=== PATIENT | male | born 1985 | race Caucasian/White ===

== ENCOUNTER 2023-06-09 20:57 | Emergency (ER) | payer OTHER, SELFPAY ==
[2023-06-09 21:01] VITALS: BP 141/77; PULSE 71; RESP 16; TEMP 36.6; O2SAT 97; BMI 28.9
[2023-06-09 21:08] VITALS: BP 141/77; PULSE 68; RESP 16; TEMP 36.6; O2SAT 96; BMI 27.4
--- NOTE | 2023-06-09 21:20 | PC.NURSE ---
LEFT FLANK PAIN X3-4 DAYS. NO RADIATING. TENDER WITH PRESSURE. DENIES OTHER SX. DENIES INJURY. DENIES HX OF KIDNEY STONE. URINE SAMPLE OBTAINED AND SENT TO LAB.
--- NOTE | 2023-06-09 21:30 | CT_ITS ---
The [address] [address] Patient Name: KING AVENDAÑO MRN: [id number] date: 1985 Sex: M Assigned Patient Location: ER Current Patient Location: Accession/Order Number: [id number] Exam Date: 06/09/2023 22:05 Report Date: 06/09/2023 22:38 At the request of: KRISTIAN VELÁZQUEZ Procedure: CT abdomen pelvis w con EXAM: CT abdomen pelvis w con HISTORY: low abd pain COMPARISON: None. TECHNIQUE: Intravenous contrast-enhanced axial CT of the abdomen and pelvis was performed with coronal and sagittal reformats provided. FINDINGS: Lung bases: Clear. ABDOMEN: Liver: Normal. Gallbladder/biliary: Normal. Pancreas: Normal. Spleen: Normal. Adrenals: Normal. Kidneys, ureters and urinary bladder: Normal. Pelvis: Borderline prostatomegaly. Vasculature: Normal caliber of the abdominal aorta. Major venous structures of the abdomen are patent. Hollow viscera/retroperitoneum: Normal appearance of the gastroesophageal junction. The small bowel is normal caliber. Appendix is normal. No focal colonic wall thickening. No intra-abdominal free fluid or free air. No mesenteric or pelvic lymphadenopathy. Musculoskeletal/soft tissues: Soft tissues within normal limits. No acute or aggressive osseous abnormality. CT/CT abdomen pelvis w con IMPRESSION: No acute intra-abdominal or pelvic abnormality. Electronically authenticated by: NUNO JAMES Date: 06/09/2023 22:38
--- NOTE | 2023-06-09 21:31 | ED_ITS ---
HPI - Abdominal Pain General Chief Complaint: Abdominal Pain Stated Complaint: Flank Pain Left Side Time Seen by Provider: 06/09/23 21:02 Source: patient Mode of arrival: walk-in Limitations: no limitations History of Present Illness HPI narrative: 37-year-old male presents for pain in his left upper quadrant. He is worried about his spleen. He has had it for 4 days and before that happened he was working out with a medicine ball and it hit him in the abdomen. No fever vomiting or dysuria or hematuria. The pain is continuous Related Data Home Medications ?Medication ?Instructions ?Recorded ?Confirmed No Known Home Medications 06/09/23 06/09/23 Allergies Allergy/AdvReac Type Severity Reaction Status Date / Time No Known Drug Allergies Allergy Verified 06/09/23 21:10 Review of Systems ROS Narrative A ten point review of systems is negative except as noted above. Exam Narrative Exam Narrative: Nurses note and vital signs reviewed and patient is not hypoxic. General: The patient appears well and in no apparent distress. Patient is resting comfortably on cart. Skin: Warm, dry, no pallor noted. There is no rash noted. Head: Normocephalic, atraumatic Eye: Normal conjunctiva, no drainage Ears, Nose, Mouth, and Throat: oral mucosa is moist. Nares patent. Cardiovascular: Regular Rate and Rhythm Respiratory: Patient is in no distress, no accessory muscle use, lungs are clear to auscultation, no wheezing, rales or rhonchi Back: non-tender GI: Tender in the left upper quadrant. No masses. No bruise or rash. Musculoskeletal: The patient has no evidence of calf tenderness, no pitting edema, symmetrical pulses noted bilaterally Neurological: A&O, normal speech Psychiatric: Cooperative Constitutional Vital Signs, click to edit/add: Last Vital Signs Temp 97.8 F 06/09/23 21:08 Pulse 68 06/09/23 21:08 Resp 16 06/09/23 21:08 BP 141/77 06/09/23 21:08 Pulse Ox 96 06/09/23 21:08 O2 Del Method Room Air 06/09/23 21:08 Course Vital Signs Vital signs: Vital Signs Temperature 97.8 F 06/09/23 21:01 Pulse Rate 71 06/09/23 21:01 Respiratory Rate 16 06/09/23 21:01 Blood Pressure 141/77 06/09/23 21:01 Pulse Oximetry 97 06/09/23 21:01 Oxygen Delivery Method Room Air 06/09/23 21:01 Temperature 97.8 F 06/09/23 21:08 Pulse Rate 68 06/09/23 21:08 Respiratory Rate 16 06/09/23 21:08 Blood Pressure 141/77 06/09/23 21:08 Pulse Oximetry 96 06/09/23 21:08 Oxygen Delivery Method Room Air 06/09/23 21:08 MDM - Abdominal Pain MDM Narrative Medical decision making narrative: Workup including CAT scan is negative. He was reassured and discharged home. Treatment diagnosis and follow-up were discussed with the patient. Differential Diagnosis Differential diagnosis: Likely abdominal pain, constipation and other (Splenic injury) Lab Data Attestation: I reviewed the patient's lab results. Labs: Lab Results 06/09/23 06/09/23 Range/Units 21:15 21:36 WBC 9.9 (4.0-11.0) 10^3/uL RBC 5.09 (4.70-6.10) 10^6/uL Hgb 15.0 (14.0-18.0) g/dL Hct 42.4 (42.0-54.0) % MCV 83.3 (80.0-94.0) fL MCH 29.5 (25.9-34.0) pg MCHC 35.4 H (29.9-35.2) g/dL RDW 11.8 (11.0-15.0) % Plt Count 232 (150-450) 10^3/uL MPV 9.4 L (9.5-13.5) fL Neut % (Auto) 46.3 (43.0-75.0) % Lymph % (Auto) 45.3 (20.5-60.0) % Woodson % (Auto) 5.2 (1.7-12.0) % Eos % (Auto) 2.0 (0.9-7.0) % Baso % (Auto) 0.7 (0.2-2.0) % Neut # (Auto) 4.6 (1.4-6.5) 10^3/uL Lymph # (Auto) 4.5 H (1.2-3.8) 10^3/uL Woodson # (Auto) 0.5 (0.3-0.8) 10^3/uL Eos # (Auto) 0.2 (0.0-0.7) 10^3/uL Baso # (Auto) 0.1 (0.0-0.1) 10^3/uL Abs Immat Gran (auto) 0.05 H (0.00-0.03) 10^3/uL Imm/Tot Granulo (auto) 0.5 (0.0-0.5) % Sodium 139 (136-145) mmol/L Potassium 4.0 (3.5-5.1) mmol/L Chloride 102 (98-107) mmol/L Carbon Dioxide 29.6 (21.0-32.0) mmol/L Anion Gap 11.4 BUN 17.0 (7.0-18.0) mg/dL Creatinine 1.04 (0.70-1.30) mg/dL Est GFR ( Amer) >60 (>=60) Est GFR (Non-Af Amer) >60 (>=60) BUN/Creatinine Ratio 16.3 Glucose 86 (74-106) mg/dL Calcium 9.0 (8.5-10.1) mg/dL Urine Color Yellow (YELLOW) Urine Clarity Clear (CLEAR) Urine pH 5.5 (5.0-9.0) Ur Specific Freeburn >=1.030 A (1.005-1.025) Urine Protein Negative (NEG/TRACE) mg/dL Urine Glucose (UA) Negative (NEGATIVE) mg/dL Urine Ketones Negative (NEGATIVE) mg/dL Urine Occult Blood Negative (NEGATIVE) Urine Nitrite Negative (NEGATIVE) Urine Bilirubin Negative (NEGATIVE) Urine Urobilinogen 0.2 (0.2-1.0) EU/dL Ur Leukocyte Esterase Negative (NEGATIVE) Urine RBC 0-2 (0-2) #/HPF Urine WBC None seen (NONE SEEN) #/HPF Ur Squamous Epith Cells None seen (NONE/RARE) #/LPF Urine Crystals None seen (None Seen) #/HPF Urine Bacteria None seen (NONE SEEN) #/HPF Urine Casts None seen (NONE SEEN) #/LPF Urine Mucus None seen (NONE SEEN) Ur Culture Indicated? No Imaging Data CT scan - abdomen: Radiologist's impression: ITS Impressions Abdomen/Pelvis CT 06/09/23 21:30 IMPRESSION: No acute intra-abdominal or pelvic abnormality. Electronically authenticated by: NUNO JAMES Date: 06/09/2023 22:38 Discharge Plan Discharge Stand Alone Forms: Portal Instructions Chief Complaint: Abdominal Pain Clinical Impression: Abdominal wall pain Patient Disposition: Home, Self-Care Time of Disposition Decision: 23:01 Condition: Good Mode of Transportation: Private Vehicle Prescriptions / Home Meds: No Action No Known Home Medications Print Language: Nepali Instructions: Blunt Abdominal Injury (ED) Referrals: Physician,Non-Staff, MD [Primary Care Provider] - 1 week
[2023-06-09 21:39] LABS: Bilirubin Urine NEGATIVE (NEGATIVE); Blood Urine NEGATIVE (NEGATIVE); Clarity Urine CLEAR (CLEAR); Color Urine YELLOW (YELLOW); Glucose Urine UA NEGATIVE (NEGATIVE); Ketones Urine NEGATIVE (NEGATIVE); Leukocyte Esterase Urine NEGATIVE (NEGATIVE); Nitrite Urine NEGATIVE (NEGATIVE); Protein Urine NEGATIVE (NEG/TRACE); Specific Gravity Urine >=1.030 (1.005-1.025); Urobilinogen Urine 0.2 EU/dL (0.2-1.0); pH Urine 5.5 (5.0-9.0)
[2023-06-09 21:42] LABS: Basophils Absolute Auto 0.1 10^3/uL (0.0-0.1); Basophils Percent Auto 0.7 % (0.2-2.0); Eosinophils Absolute Auto 0.2 10^3/uL (0.0-0.7); Hematocrit 42.4 % (42.0-54.0); Immature Granulocytes Abs Auto 0.05 10^3/uL (0.00-0.03); Immature Granulocytes Pct Auto 0.5 % (0.0-0.5); Lymphocytes Absolute Auto 4.5 10^3/uL (1.2-3.8); Lymphocytes Percent Auto 45.3 % (20.5-60.0); Mean Corpuscular HGB Conc 35.4 g/dL (29.9-35.2); Mean Corpuscular Hemoglobin 29.5 pg (25.9-34.0); Mean Corpuscular Volume 83.3 fL (80.0-94.0); Mean Platelet Volume 9.4 fL (9.5-13.5); Monocytes Absolute Auto 0.5 10^3/uL (0.3-0.8); Monocytes Percent Auto 5.2 % (1.7-12.0); Neutrophils Absolute Auto 4.6 10^3/uL (1.4-6.5); Neutrophils Percent Auto 46.3 % (43.0-75.0); Platelet Count 232 10^3/uL (150-450); Red Blood Count 5.09 10^6/uL (4.70-6.10); Red Cell Distribution Width 11.8 % (11.0-15.0); White Blood Count 9.9 10^3/uL (4.0-11.0)
[2023-06-09 21:45] LABS: Bacteria Urine NONE SEEN #/HPF (NONE SEEN); Cast Seen? NONE SEEN #/LPF (NONE SEEN); Crystals Seen? None Seen #/HPF (None Seen); Mucus Urine NONE SEEN (NONE SEEN); RBC Urine 0-2 #/HPF (0-2); Squamous Epithelial Cell Urine NONE SEEN #/LPF (NONE/RARE); Urine Culture Indicated NO; WBC Urine NONE SEEN #/HPF (NONE SEEN)
[2023-06-09 21:52] LABS: Anion Gap 11.4; BUN Creatinine Ratio 16.3; Carbon Dioxide 29.6 mmol/L (21.0-32.0); Chloride 102 mmol/L (98-107); Estimated GFR (African America >60 (>=60); Estimated GFR (Non-African Ame >60 (>=60); Glucose 86 mg/dL (74-106); Sodium 139 mmol/L (136-145)
== END 2023-06-09 23:08 | disposition home or self-care (01) ==
PROVIDERS: Emergency Provider Emergency Medicine
DX: R10.9 Unspecified abdominal pain (principal)
CPT/HCPCS: 36415; 74177; 80048; 81001; 85025; 99285; Q9967

== ENCOUNTER 2024-09-23 14:04 | Emergency (ER) | payer SELFPAY ==
--- OUTSIDE RECORDS SUMMARY | 2023-03-03 12:06 | XMS_ITS | Continuity of Care Document ---
Author Organization [facility] Address [address] [place] [address] Phone Care Team Providers Care Hot Oiler Name Role Phone Durga FIGUEROA, Marvin Unavailable Unavailab le Allergies, Adverse Reactions, Alerts Substance Reaction Status Criticality No Known Allergies Active No Inform ation Medications Medication Instructions Dosage Effective Dates (start - stop) Status Comments cephalexin 500 mg capsule take 1 capsule by oral route every 8 hours 500 MG - Active Procedures Procedure Date OFFICE/OUTPATIENT VISIT, EST OFFICE/OUTPATIENT VISIT, EST Nutrit Couns For Control Of Swift Dis Nov Oral Hygiene Instruction Prophylaxis Adult Oral Hygiene Instruction Intraoral-complete Series (bw) Periodic Oral Eval Estab Patient 2021 OFFICE/OUTPATIENT VISIT, EST OFFICE/OUTPATIENT VISIT, EST GLYCOSYLATED HEMOGLOBIN TEST OFFICE/OUTPATIENT VISIT, EST ROUTINE VENIPUNCTURE OFFICE/OUTPATIENT VISIT, EST [employer] Intraoral-periapical 1st Film 8 [id number] Additional May Periodic Oral Eval Estab Patient 2017 Prophylaxis Adult Oral Hygiene Instruction [employer] OFFICE/OUTPATIENT VISIT, EST ROUTINE VENIPUNCTURE Extract; Erupted Th/exposted Rt 016 Prophylaxis Adult [employer] Oral Hygiene Instruction Intraoral-periapical 1st Film 6 Periodic Oral Eval Estab Patient 2015 Resin 4+ W/incis Angle Anterior 014 OFFICE/OUTPATIENT VISIT, EST ROUTINE VENIPUNCTURE Condoms HIV-1 Prophylaxis Adult Oral Hygiene Instruction Intraoral-complete Series (bw) 14 Comp Oral Eval New/estab Patient 2013 PREV VISIT, EST, AGE 18-39 OFFICE/OUTPATIENT VISIT, EST SPECIMEN HANDLING ROUTINE VENIPUNCTURE RPR, RFX On RPR CRYOTHERAPY OF SKIN Advance Directives Directive Yes / No Effective Date File Name No Information Encounters Encounter Description Practice Location Reason(s) For Visit Diagnoses Date Provider Providers Copied on Encounter [facility], [address] [place] [address], [id number] , [place] tel:[phone] [facility] No Information 3 Durga Wong. [address] [place] [address], [id number], [place]. tel:[phone] OFFICE/OUTPA TIENT VISIT, [facility], [address] [place] [address], [id number] , [place] tel:[phone] [facility] c/o sti (chief complaint) Body mass index [BMI]30.0-30.9, adultRash 2 Durga Wong. [address] [place] [address], [id number], [place]. tel:[phone] OFFICE/OUTPA TIENT VISIT, EST [facility], [address] [place] [address], [id number] , [place] tel:[phone] [facility] [place] c/o STI (chief complaint) RashContact with and (suspected) exposure to infections with a predominantly sexual mode of transmission Feb- 2 Durga Wong. [address] [place], [place], [id number], [place]. tel:[phone] [facility], [address] [place] [address], [id number] , [place] tel:[phone] [facility] Adult Prophy (chief complaint) Encounter for screening for dental disorders Sep-0 2 [facility] Asndi. . tel:[phone] [facility], [address] [place] [address], [id number] , [place] tel:[phone] [facility] Encounter for screening for dental disorders Nov-0 2 [facility] Sandi. . tel:[phone] [facility], [address] [place] [address], [id number] , [place] tel:[phone] [facility] PE (chief complaint) Encounter for screening for dental disorders Sep-0 2 [facility] Sandi. . tel:[phone] OFFICE/OUTPA TIENT VISIT, [facility], [address] [place] [address], [id number] , [place] tel:[phone] [facility] Review Labs (chief complaint)h yperlipidem ia (chief complaint) Body mass index [BMI] 28.0-28.9, adultHyperlipid emia, unspecified hyperlipidemia type July- 2 Durga Wong. [address] [place] [address], [id number], [place]. tel:[phone] OFFICE/OUTPA TIENT VISIT, [facility], [address] [place] [address], [id number] , [place] tel:[phone] [facility] Follow-Up (chief complaint)h yperlipidem ia (chief complaint)d epression (chief complaint) Hyperlipidemia, unspecified hyperlipidemia typePTSD (post-traumatic stress disorder)Other bipolar disorderBody mass index [BMI] 28.0-28.9, adult Apr-2 2 Durga Wong. [address] [place], [place], [id number], [place]. tel:[phone] OFFICE/OUTPA TIENT VISIT, [facility], [address] [place] [address], [id number] , [place] tel:[phone] [facility] lab review (chief complaint)l ab work (chief complaint)h yperlipidem ia (chief complaint) Body mass index [BMI]30.0-30.9, adultHyperlipid emia, unspecified hyperlipidemia typeContact with and (suspected) exposure to infections with a predominantly sexual mode of transmission 2 Durga Wong. [address] [place], [place], [id number], [place]. tel:[phone] OFFICE/OUTPA TIENT VISIT, [facility], [address] [place] [address], [id number] , [place] tel:[phone] [facility] STI screening (chief complaint) Contact with and (suspected) exposure to infections with a predominantly sexual mode of transmissionBod y mass index [BMI] 29.0-29.9, adultHyperlipid emia, unspecified hyperlipidemia type 2 Durga Wong. [address] [place], [place], [id number], [place]. tel:[phone] [address] [place] [address], [address] [place] [address], [id number] , [place] tel:[phone] [facility] prophy adult (chief complaint)p rophy adult (chief complaint) Encounter for screening for dental disorders 0 8-201 8 Kokinnadiyan castillon DMD Solochana . [address] [place] [address], [id number], [place]. tel:[phone] OFFICE/OUTPA TIENT VISIT, [facility], [address] [place] [address], [id number] , [place] tel:[phone] [facility] Kenefic: (chief complaint) Encounter for STD screeningEncoun ter for screening for human immunodeficienc y virus [HIV]Encounter for screening for other metabolic disorders 8 Dotty Mccoy. [address] [place], [address], [place]. tel:[phone] [facility], [address] [place], [place], [id number] , [place] tel:[phone] [facility] extraction (chief complaint) Encounter for screening for dental disorder 6 [facility] June. [address] [place], [place], [id number], [place]. tel:[phone] [facility], [address] [place], [place], [id number] , [place] tel:[phone] [facility] prophy (chief complaint) Encounter for screening for dental disorder 6 [facility] June. [address] [place], [place], [id number], [place]. tel:[phone] [facility], [address] [place] [address], [id number] , [place] tel:[phone] [facility] screening (chief complaint) Encounter for screening for HIVPenile rashEncounter for screening for other viral diseases 6 Cheryl Jensen. [address] [place], [place], [id number], [place]. tel:[phone] [place] [address], [address] [place] [address], [id number] , [place] tel:[phone] [facility] Dental examination 4 [facility] June. [address] [place], [place], [id number], [place]. tel:[phone] OFFICE/OUTPA TIENT VISIT, EST [facility], [address] [place], [place], [id number] , [place] tel:[phone] [facility] STI male (chief complaint) Contact with or exposure to venereal diseases 4 Cheryl Jensen. [address] [place], [place], [id number], [place]. tel:[phone] [facility], [address] [place], [place], [id number] , [place] tel: [phone] [facility] Clinic Dental examination 4 [place] [facility] June. [address] [place], [place], [id number], [place]. tel:[phone] [facility], [address] [place] [address], [id number] , [place] tel: [phone] [facility] Dental examination 4 [place] D[facility] June. [address] [place], [place], [id number], [place]. tel:[phone] PREV VISIT, EST, AGE 18-39 [facility], [address] [place] [address], [id number] , [place] tel: [phone] [facility] STI male (chief complaint) Screening examination for venereal diseaseDermatop hytosis of groin and perianal area 0-201 3 Cheryl Jensen. [address] [place], [place], [id number], [place]. tel:[phone] OFFICE/OUTPA TIENT VISIT, EST [facility], [address] [place] [address], [id number] , [place] tel: [phone] [facility] No Information 9200 9 Cheryl Jensen. [address] [place] [address], [id number], [place]. tel:[phone] Family History Family Member Type Diagnosis Age At Onset Mother Problem (finding) depression Father Problem (finding) Alive and well Mother Problem (finding) Alive and well Mother Problem (finding) hypercholesterolemia Father Problem (finding) hypertension Father Problem (finding) alcoholism Father Problem (finding) hypercholesterolemia Brother Problem (finding) depression Mother Problem (finding) hypertension Father Problem (finding) diabetes mellitus type 2 Father Problem (finding) depression Father Problem (finding) Diabetes mellitus Payers Payer name Insurance type Covered green party ID Authoriza tion(s) No Information Social History Type Description Quantity Date Captured Comments Alcohol Use Details Unknown Caffeine Use Details Unknown Tobacco Use Status No Information Smoking Status No Information Sex Male Sexual Orientation Straight or heterosexual Gender Identity Male Chief Complaint And Reason For Visit No Information Reason For Referral Reason For Referral No Information Plan Of Treatment Date Type Action Status Goal Hepatitis C scre ening. Due on due Goal Unhealthy drug u se screening. Due on due Goal Depression scree roge. Due on due Goal Hep A. Due on du e Goal RLP. Due on due Goal PRAPARE ASSESSMENT. Due on due Goal Tdap. Due on due Goal Influenza vaccine. Due on due Goal Hep A. Due on du e Goal Tdap Vaccine. Due on 2022 due Goal Lipid panel. Due on 025 due Goal Depression scree roge. Due on due Goal PRAPARE ASSESSMENT. Due on due Goal Lipid panel. Due on 027 due Goal Influenza vaccine. Due on due Goal Tdap. Due on due Goal RLP. Due on due Goal Dietary manageme nt education, guidance, and counseling completed Goal Tdap. Due on due Goal Depression scree roge. Due on due Goal RLP. Due on due Goal Influenza vaccine. Due on due Goal PRAPARE ASSESSMENT. Due on D due Goal Lipid panel. Due on due Goal Lipid panel. Due on due Goal Tdap. Due on due Goal PRAPARE ASSESSMENT. Due on S due Goal RLP. Due on due Goal Depression scree roge. Due on due Goal Influenza vaccine. Due on Se due Goal RLP. Due on due Goal Depression scree roge. Due on due Goal Influenza vaccine. Due on Se due Goal Tdap. Due on due Goal PRAPARE ASSESSMENT. Due on S due Goal RLP. Due on due Goal Influenza vaccine. Due on due Goal Depression scree roge. Due on due Goal Tdap. Due on due Goal Dietary manageme nt education, guidance, and counseling completed Goal Tdap. Due on due Goal RLP. Due on due Goal Depression scree roge. Due on due Goal Influenza vaccine. Due on Ap due Goal Lifestyle education regardin g diet completed Goal Influenza vaccine. Due on due Goal Tdap. Due on due Goal Depression scree roge. Due on due Goal RLP. Due on due Goal Dietary manageme nt education, guidance, and counseling completed Goal Influenza vaccine. Due on due Goal RLP. Due on due Goal Tdap. Due on due Goal Depression scree roge. Due on due Goal Lifestyle education regardin g diet completed Goal Tdap. Due on due Goal Depression scree roge. Due on due Goal H&P. Due on due Goal Influenza vaccine. Due on due Goal RLP. Due on due Goal RLP. Due on due Goal Depression scree roge. Due on due Goal Influenza vaccine. Due on due Goal Tdap. Due on due Goal H&P. Due on due Goal H&P. Due on due Goal Tdap. Due on due Goal Td vaccine. Due on 16 due Goal Td vaccine. Due on 16 due Goal H&P. Due on due Goal Tdap. Due on due Goal H&P. Due on due Goal Tdap. Due on due Goal Td vaccine. Due on 16 due Goal H&P. Due on due Future Order: Lab Order HSV 1 an d 2-Specific Ab, IgG ([id number]), Ordered on: Ordered Future Order: Lab Order HSV Cult ure and Typing ([id number]), Ordered on: Ordered History Of Present Illness Encounter Date Complaint History Of Prese nt Illness c/o sti Pt here for STI. Edwina, RNHSV positive partner, rash to groin area for 1-2 weeks. Partner with outbreak 1 month ago no intercourse while rash present. Concern for HSV, cephalexin has not been started. Nhan [facility] c/o STI Patient states h e has a rash in genital area. States it feels like a heat rash but he is not sure so wants to get it checked. States it started a few days ago and it started itching before that. Does not use condoms. No burning or difficulties urinating.Pebbles Turpin RNPartner HSV 2+ her first outbreak recently. Patient no prior outbreak previously HSV 2 negative. Recent rash to groin area 5 days ago, concern for HSV 2 partner not on suppression medication. Nhan [facility] Adult Prophy Adult Prophy PE hyperlipidemia Risk factors inc lude depression and poor diet. The patient is adhering to follow-up, diet and exercise for their hyperlipidemia. Hyperlipidemia management includes improved diet and increased exercise. There are no associated symptoms. Additional information: Nhan BILLS. Review Labs Pt here today to review labs. No other issues or concernsTGrodamerico UREÑA Follow-Up Scored 19 on PHQ -9, feels that his life is getting harder because his stress is getting worse and worse.//Gabriel VILLAFANA hyperlipidemia The hyperlipidem ia started in 2020. Risk factors include depression and poor diet. The patient is adhering to medication, follow-up and diet for their hyperlipidemia. Hyperlipidemia management includes improved diet. Associated symptoms include weight loss. Pertinent negatives include chest pain, diaphoresis, dizziness, dyspnea, increased fatigue and transient weakness. Additional information: Nhan BILLS. depression This is an initi al visit. The patient reports functioning as somewhat difficult. The patient presents with anxious/fearful thoughts, depressed mood, difficulty falling asleep, difficulty staying asleep and excessive worry but denies paranoia, poor judgment, racing thoughts or restlessness. The depression is aggravated by conflict or stress, drug use and lack of sleep. Interventions the patient has tried have not provided any relief. The patient denies any sweating. Additional information: Nhan BILLS. lab review Pt here today to discuss lab results from 03/26. No complaints at this time. Viridiana Tomlinson RN lab work Lab work obtaine d successfully in [facility] after 1st attempt. No complications at this time. Viridiana Tomlinson RN hyperlipidemia Risk factors inc lude depression and poor diet. The patient is adhering to medication and follow-up for their hyperlipidemia. The patient is not adhering to diet and exercise for their hyperlipidemia. Pertinent negatives include chest pain, claudication, constant hunger, constipation, diaphoresis, diarrhea, dizziness, dysesthesias, dyspnea, excessive thirst, foot ulcer, frequent infections, heartburn, hematuria, increased fatigue, joint pain, myalgia, nausea and nocturia. Additional information: Nhan BILLS. STI screening Patient denies h aving any symptoms today. Patient's current partners are women. Patient reports does not have an untreated positive gonorrhea or chlamydia test. Patient reports sometimes using condoms. Current sexual activity includes: vaginal. Patient has no previous history of treated sexually transmitted infection(s). Patient reports new partner(s) since last STI tests. Patient has had anonymous partners. Patient reports having 2 partners in the last 12 months. Patient reports exposure to herpes simplex virus. Patient does not use shared needles. Patient does not have sex for money or drugs. Patient reports he has never been incarcerated. Patient has not had exposure to blood/body fluids at work. Partner's sexual partners are men. Unknown if there was a partner with symptoms in the past 60 days. Partner is monogamous. Partner's HIV status is unknown. Unknown if partner uses IV drugs. It is unknown if patient's partner has ever been incarcerated. Additional information: patient tested positive for HSV per energy conservation technician, patient requesting to be tested. Nhan BILLS. Mar-08-2018 prophy adult 5M prophy adult Dotty: His par yesenia was said to have chalmydia about 1 month ago and he just wants to be tested. He has no sxs, no discharge or ulcers or dysuria. He also wants to be checked for Hiv. There is no other medical Hx. There have been no surgeries. extraction continue with tr eatment prophy screening Pt here for sti screening. Reports friction burn on penis, has had it for 2 months. Has had tried burn cream and triple antibiotic ointment with minimal healing. Reports that he hasn't used anything on it for the past week. Declines condoms. Reports last had sex 2wks ago. Girlfriend recently treated for abnormal pap test. Requests HIV screen and Hep C testing. Reports recently found out a past partner is Hep C+. Jim Functional Status Date Functional Assessmen t No Information Instructions Date Instruction Additional Infor italia 1. TEST COMPLETED2. Will contact for POSITIVE TEST RESULTS ONLY.3. Use condoms Related to Rash Giving encouragement to exercise Related to Body mass index [BMI] 30.0-30.9, adult Dietary management e ducation, guidance, and counseling Related to Body mass index [BMI] 30.0-30.9, adult 1. HSV testing pendi ng2. no intercourse until clear3. complete keflex4. Will call with results Related to Rash 1. Continue OMEGA 3 supplementation2. Diet limit intake of meals high in LDL cholesterol and increase intake of HDL containing foods.3. Exercise at least 30 minutes 5 times per week of active exercise4. Avoid smoke and/or quit smoking5. Follow up 12 months. Related to Hyperlipidemia, unspecified hyperlipidemia type Giving encouragement to exercise Related to Body mass index [BMI] 28.0-28.9, adult Dietary management e ducation, guidance, and counseling Related to Body mass index [BMI] 28.0-28.9, adult 1. pending labs- LIP ID PANEL2. Diet limit intake of meals high in LDL cholesterol and increase intake of HDL containing foods.3. Exercise at least 30 minutes 5 times per week of active exercise4. CONTINUE OMEGA 3 SUPPLEMENTATION5. Follow up 1 week Related to Hyperlipidemia, unspecified hyperlipidemia type 1. Follow up with [facility]. [place] [facility] 2. Avoid alcohol and illicit drugs3. Exercise regularly4. practice good sleep hygiene.5. [place] [facility] [place] any suicidal or homicidal ideations Related to PTSD (post-traumatic stress disorder) 1. Follow up with [facility]. [place] [facility] [place] 2. Avoid alcohol and illicit drugs3. Exercise regularly4. practice good sleep hygiene.5. Use [facility] [place] for any suicidal or homicidal ideations Related to Other bipolar disorder Giving encouragement to exercise Related to Body mass index [BMI] 28.0-28.9, adult Lifestyle education regarding di et Related to Body mass index [BMI] 28.0-28.9, adult 1. FU as needed. Related to Cont act with and (suspected) exposure to infections with a predominantly sexual mode of transmission 1. Take omega 3 supp lements2. Diet limit intake of meals high in LDL cholesterol and increase intake of HDL containing foods.3. Exercise at least 30 minutes 5 times per week of active exercise4. Avoid smoke and5. Follow up 3 months. Related to Hyperlipidemia, unspecified hyperlipidemia type Giving encouragement to exercise Related to Body mass index [BMI] 30.0-30.9, adult Dietary management e ducation, guidance, and counseling Related to Body mass index [BMI] 30.0-30.9, adult 1. TEST COMPLETED2. Will contact for POSITIVE TEST RESULTS ONLY.3. Use condoms Related to Contact with and (suspected) exposure to infections with a predominantly sexual mode of transmission Giving encouragement to exercise Related to Body mass index [BMI] 29.0-29.9, adult Lifestyle education regarding di et Related to Body mass index [BMI] 29.0-29.9, adult Avoid sexual activit y while you await your test results. Related to Encounter for screening for other viral diseases Assessments Type Assessment Date No Information Patient Care Teams Name Effective Dates (start - stop) Status Members No Information
--- OUTSIDE RECORDS SUMMARY | 2023-10-04 10:45 | XMS_ITS ---
Author Organization [facility] es Address [address] [place] [address] Care Team Providers Care Breakfast And Room Attendant Name Role Phone Dr. Jono Mars Primary Care Provider [phone] Storm Easton [phone] REASON FOR VISIT FILLING Encounters Encounter Location Date Provider Diagnosis [place] [address] [place] [address] 10/04/2023 Storm Vang Plan Of Treatment No Information Progress Notes * KING AVENDAÑO TDOB:1985 (39 yo M)Acc No.[id number]:10/04/2023 Patient: KING LEDESMA Provider: Roldan Vang DDS :1985 A ge:38 Y S ex:Male Date:10/04/2023 Address:[address] [facility] [address] [id number] Pcp:Dr. Jono Mars Subjective: * Chief Complaints: * 1 . FILLING. * Medical History: Objective: * Vitals: Assessment: Plan: * Treatment: * Images: * Electronic signature of Yaquelin Vang DDS on 09/23/2024 at 02:19 PM EDT Sign off status: Pending * Provider: Roldan Vang DDS Date: 10/04/2023 Generated for Alice nazario/Alfred/eTransmitting on: 09/23/2024 02:19 PM EDT
--- OUTSIDE RECORDS SUMMARY | 2023-12-08 04:30 | XMS_ITS ---
Author Organization [facility] es Address [address] [place] [address] Care Team Providers Care Lease Purchase Truck Driver Name Role Phone Dr. Jono Mars Primary Care Provider [phone] Alison Marcus [phone] REASON FOR VISIT PROPHY Encounters Encounter Location Date Provider Diagnosis [facility] [address] [place] [address] 12/08/2023 Alison Lewis Plan Of Treatment No Information Progress Notes * KING AVENDAÑO TDOB:1985 (39 yo M)Acc No.[id number]:12/08/2023 Patient: KING LEDESMA Provider: Janet Hahn :1985 A ge:38 Y S ex:Male Date:12/08/2023 Address:[address] [facility] [address] [facility] Pcp:Dr. Jono Mars Subjective: * Chief Complaints: * 1 . PROPHY. * Medical History: Objective: * Vitals: Assessment: Plan: * Treatment: * Images: * Electronic signature of Radha Lewis on 09/23/2024 at 02:18 PM EDT Sign off status: Pending * Provider: Janet Hahn Date: 12/08/2023 Generated for Bii ng/Faabdirashidg/eTransmitting on: 0 09/23/2024 02:18 PM EDT
--- OUTSIDE RECORDS SUMMARY | 2024-01-16 05:00 | XMS_ITS ---
Author Organization [facility] es Address [address] [place] [address] Care Team Providers Care Mutton Puncher Name Role Phone Dr. Jono Mars Primary Care Provider Thalia Alonzo REASON FOR VISIT FILLING Encounters Encounter Location Date Provider Diagnosis [facility] [address] [place] [address] 01/16/2024 Thalia Scott Plan Of Treatment No Information Progress Notes * KING AVENDAÑO TDOB:1985 (39 yo M)Acc No.[id number]:01/16/2024 Patient: KING LEDESMA Provider: Dallas SCOTT DDS :1985 A ge:38 Y S ex:Male Date:01/16/2024 Address:[address] [place] [address] W, [address] [phone] Pcp:Dr. Jono Mars Subjective: * Chief Complaints: * 1 . FILLING. * Medical History: Objective: * Vitals: Assessment: Plan: * Treatment: * Images: * Electronic signature of Adela Scott DDS on 09/23/2024 at 02:18 PM EDT Sign off status: Pending * Provider: Dallas SCOTT DDS Date: 1 Generated for Printi ng/Faxing/eTransmitting on: 0 09/23/2024 02:18 PM EDT
[2024-09-23 14:09] VITALS: BP 141/94; PULSE 78; TEMP 36.7; O2SAT 98; BMI 28.9
--- OUTSIDE RECORDS SUMMARY | 2024-09-23 14:19 | XMS_ITS | Clinical Summary ---
Author Organization [facility] Address [address] [place] [address] Care Team Providers Care Trust And Estates Attorney Name Role Phone Unavailable Primary Care Provider Unavailabl e Allergies No known active allergies Medications terbinafine (LamISIL) 250 MG tabletIndication s:Tinea corporis Take 1 tablet, by mouth, once daily x 14 days 14 tablet 4 Active fluocinonide (Lidex) 0.05 % external solutionIndicati ons:Rash and other nonspecific skin eruption Apply to affected areas on the scalp, up to twice a day when flared, 30 day supply 60 mL 1 5 Active Active Problems No known active problems Encounters Date Type Department Care Team Description 08/30/2024 Telephone [facility] [address] [place] [address] Ilana Maguire LPN Results 08/24/2024 Results Follow-Up [facility] [address] [place] [address] Rula Hooper MD 08/23/2024 1:05 PM EDT Office Visit [facility] [address] [place] [address] Rula Hooper MD Encounter for removal of sutures 08/23/2024 Bamboo flowsheet [facility] [address] [place] [address] Rula Hooper MD 08/23/2024 Travel 08/16/2024 11:10 AM EDT Office Visit [facility] [address] [place] [id number] Araceli Villatoro APRN-CNP Rash and other nonspecific skin eruption 08/16/2024 Bamboo flowsheet [facility] [address] [place] [phone] Araceli Villatoro APRN-CNP 08/16/2024 Travel from Last 3 Months Social History Tobacco Use Types Packs/Day Years Used Date Smoking Tobacco: Unknown Tobacco Cessation:Counseling Given: Not Answered Sex and Gender Information Value Date Recorded Sex Assigned at Not on file Legal Sex Male 11:08 PM EDT Gender Identity Not on file Sexual Orientation Not on file Plan of Treatment Upcoming Encounters Date Type Department Care Team (Late st Contact Info) Description 08/20/2025 8:30 AM EDT Office Visit [facility] [address] [place] [address] Araceli Villatoro APRN-CNP [address] [place] [address] Procedures Procedure Name Priority Date/Time Associated Diagnosis Comments SKIN / NAIL BIOPSY Routine 08/16/2024 11 :28 AM EDT Rash and other nonspecific skin eruption DERMATOPATHOLOGY EXAM Routine 08/16/2024 12:00 AM EDT Rash and other nonspecific skin eruption from Last 3 Months Results * Lesion biopsy (08/16/2024 11:28 AM EDT) Narrative Lindsay Junior MA - 08/16/2024 11:28 AM EDT Type of biopsy: punch Punch size: 4 mm Suture size: 4-0 Suture type: nylon Hemostasis achieved with: suture Araceli PACHECO DERM PROCEDURE ORDERAB LES Final Result * Dermatopathology exam (08/16/2024 12:00 AM EDT) SPECIMEN TYPE --- SPECIMEN: RIGHT OCCIPITAL SCALP --- [facility] ICD10 Code L30.8 [facility] PROTOCOL P - PUNCH [facility] Final Diagnosis PSORIASIFORM DERMATITIS, MOST SUGGESTIVE OF PSORIASIS. COMMENT: A PAS stain with adequate control reveals limited keratin to evaluate based upon partial rotation of this section. However, no organisms are identified. This material was reviewed with Dr. Javed. [facility] Gross Text [facility] Microscopic Description Microscopic examination performed. [facility] CPT 88137*1 55650*1 [facility] Skin Topography unknown / Unknown 08/16/2024 11:28 AM EDT Comment:Differential Diagnos is: psoriasis vs. Tinea corporis Check Margins: No us Araceli Villatoro DUPLICATING MACHINE SERVICER-AIR COMPRESSOR ENGINEER LAB PATHOLOGY ORDERABL ES Final Result [facility] from Last 3 Months
--- NOTE | 2024-09-23 14:32 | ED.SKABFB1 ---
HPI - Skin/Abscess/Foreign Bdy General Chief complaint: Skin/Abscess/Foreign Body Stated complaint: RASH Time Seen by Provider: 09/23/24 14:31 Source: patient Mode of arrival: walk-in Limitations: no limitations History of Present Illness HPI narrative: Is a 39-year-old male presents to the ER with concerns of a pruritic skin rash. Patient states he believes he was exposed to poison alda approximately 2 to 3 days ago. Patient states he was camping and hiking [place] when he began itching on his left mid arm and chest. He has been using topical Caladryl with minimal relief. Patient states he will typically get the rash all over once it starts. He has a pertinent history of Bruno Parkinson's White but has taken steroids before without complication including IM injection and oral. He denies any fevers or chills denies any recent illness. He appears in no distress and denies burning any plant material with no chest pain or shortness of breath. MD complaint: Reports rash Context: Reports recent camping; Denies new medication, recent antibiotic, foreign travel, witnessed insect bite or IVDA Associated symptoms: Denies fever, chills or rigors Treatments prior to arrival: Reports OTC topical medication Related Data Previous Rx's ?Medication ?Instructions ?Recorded triamcinolone acetonide 0.1 % 1 applic topical BID PRN itching 09/23/24 topical cream #30 grams Allergies Allergy/AdvReac Type Severity Reaction Status Date / Time No Known Drug Allergies Allergy Verified 06/09/23 21:10 Review of Systems ROS Constitutional Denies: fever, chills or change in weight Eyes Denies: change in vision, blurry vision or blind spots Ears, nose, mouth, and throat Denies: throat pain, neck pain, throat swelling, difficulty swallowing or ear discharge Cardiovascular Denies: chest pain, palpitations, edema or leg pain with exertion Respiratory Denies: shortness of breath, cough or wheezing Gastrointestinal Denies: abdominal pain, nausea or vomiting Genitourinary Denies: painful urination or urinary frequency Musculoskeletal Denies: back pain, neck pain or extremity pain Integumentary/Breast Reports: rash and itching; Denies: redness, skin pain or skin swelling Neurological Denies: headache Psychiatric Denies: anxiety Endocrine Denies: excessive urination PFSH PFSH Social History Little interest or pleasure in doing things: not at all Feeling down, depressed, or hopeless: not at all Exam Narrative Exam Narrative: Vital Signs and nurse's notes are reviewed. The patient is not hypoxic. General: Alert, no acute distress, patient resting comfortably Skin: warm, intact, no pallor noted. The patient has evidence wispy linear erythematous rash slightly raised with tiny vesicles. Nonpainful. Localized to the left anterior chest, left lower abdomen and left mid humerus. Tabor topical Caladryl lotion overlying. The patient has no evidence of petechiae, purpura. The patient has no sloughing of the skin. The patient does have blanching noted. The patient has no involvement of the palms, soles, or oral mucosa. The patient has no significant want associated. Head: Normocephalic, atraumatic Eye: Normal conjunctiva, No exudates Ears, nose, throat: moist mucous membranes, there is no involvement of the oral mucosa, there is no lip or tongue swelling. The patient has airway patent. The patient has no tonsillar hypertrophy or swelling to the posterior oropharynx. No evidence of Vesicles. Neck: The patient has no masses, warmth, or erythema. The patient has no meningeal signs. The patient has no nuchal rigidity noted. Cardiovascular: Regular Rate and Rhythm Respiratory: No acute distress, tachypnea, mild rhonchi and wheezing noted in bilateral lung paiz. No round noted. No retractions or stridor. Abdomen: Normal bowel sounds, soft, nontender, no rebound, guarding or rigidity noted. No masses detected. Musculoskeletal: Normal range of motion, no calf tenderness noted bilaterally, no edema noted. Negative Gigi's sign bilaterally. no evidence of cyanosis or mottling noted to the extremities. Pulses intact. Neurological: alert and oriented x4, normal speech, normal motor, normal sensory Psychiatric: Cooperative Constitutional Vital Signs, click to edit/add: Last Vital Signs Temp 98.1 F 09/23/24 14:09 Pulse 78 09/23/24 14:09 Resp 18 09/23/24 14:09 BP 141/94 H 09/23/24 14:09 Pulse Ox 98 09/23/24 14:09 O2 Del Method Room Air 09/23/24 14:09 Course Vital Signs Vital signs: Vital Signs Temperature 98.1 F 09/23/24 14:09 Pulse Rate 78 09/23/24 14:09 Respiratory Rate 18 09/23/24 14:09 Blood Pressure 141/94 H 09/23/24 14:09 Pulse Oximetry 98 09/23/24 14:09 Oxygen Delivery Method Room Air 09/23/24 14:09 Temperature 98.1 F 09/23/24 14:09 Pulse Rate 78 09/23/24 14:09 Respiratory Rate 18 09/23/24 14:09 Blood Pressure 141/94 H 09/23/24 14:09 Pulse Oximetry 98 09/23/24 14:09 Oxygen Delivery Method Room Air 09/23/24 14:09 MDM - Skin/Abscess/Foreign Bdy MDM Narrative Medical decision making narrative: Discussed patient's presentation, educated on poison alda and the oils he is advised to wash his linens in the cam[place] so that he does not reexposed himself after sleeping all weekend. Rash consistent with that of likely poison alda. Pruritic. We discussed topical and IM steroid for treatment along with ijny-pmk-baohrfe medication such as Claritin for itching and Benadryl at nighttime. Patient agreeable to IM injection we discussed his history of Bruno Parkinson's White and he has tolerated this in the past without incident. He will be given a prescription for topical steroid to spot treat as needed. Patient thankful had no further concerns or questions and has no other complaints at this time. Patient was given 40 mg IM Kenalog here. The patient is to followup with primary care physician in next 2-5days or to return to the emergency department should any of the signs or symptoms worsen or new symptoms develop. Patient had questions answered. The patient agrees with the following Diagnosis and Treatment plan and the patient will be discharged home. Discharge Plan Discharge Chief Complaint: Skin/Abscess/Foreign Body Clinical Impression: Dermatitis due to plants, including poison alda, sumac, and oak, Itchy skin Patient Disposition: Home, Self-Care Time of Disposition Decision: 14:37 Condition: Good Prescriptions / Home Meds: New triamcinolone acetonide 0.1 % cream 1 applic topical BID PRN (Reason: itching) Qty: 30 0RF Rx Instructions: do not apply to face Print Language: Kinyarwanda Instructions: Poison Alda (ED) Additional Instructions: Your doctor in 3-5 days/ May use day time allergy medication such at Claritin, and Benadryl at night for sleeping. Referrals: Physician,Non-Staff, MD [Primary Care Provider] - 1 week
[2024-09-23] MEDS: TRIAMCINOLONE ACETONIDE 40 MG/ML VIAL IM (14:49)
== END 2024-09-23 14:59 | disposition home or self-care (01) ==
PROVIDERS: Emergency Provider Emergency Medicine
DX: L23.7 Allergic contact dermatitis due to plants, except food (principal); I45.6 Pre-excitation syndrome
CPT/HCPCS: 96372; 99284; J3301

== ENCOUNTER 2024-10-08 19:05 | Emergency (ER) | payer SELFPAY ==
[2024-10-08 19:21] VITALS: BP 152/101; PULSE 82; TEMP 36.5; O2SAT 97; BMI 28.9
--- NOTE | 2024-10-08 19:33 | XR_ITS ---
The [address] [address] Patient Name: KING AVENDAÑO MRN: [id number] date: 1985 Sex: M Assigned Patient Location: ER Current Patient Location: ER Accession/Order Number: [id number] Exam Date: 10/08/2024 20:05 Report Date: 10/08/2024 20:06 At the request of: LV LOERA Procedure: XR chest 2V Plain film chest 2 view HISTORY: Cough and congestion COMPARISON: None FINDINGS: SUPPORT DEVICES: None POSTSURGICAL CHANGES: None HEART: Within normal limits PULMONARY SANKET: Within normal limits MEDIASTINUM: Unremarkable LUNGS AND PLEURA: No acute lung process, pleural effusion or pneumothorax identified. BONY STRUCTURES: Intact ADDITIONAL FINDINGS None XR/XR chest 2V IMPRESSION: No acute process. Impression dictated by: Naveen Wild M.D. 10/08/2024 8:06 PM Dictation Location: [place] [address] Electronically authenticated by: [id number] Y Date: 10/08/2024 20:06
--- NOTE | 2024-10-08 19:38 | PC.NURSE ---
pt ambulatory to XR with Graduation Coach at this time.
[2024-10-08] MEDS: IPRATROPIUM/ALBUTEROL SULFATE 3 ML AMPUL.NEB IH (19:42)
[2024-10-08 19:45] VITALS: PULSE 79; O2SAT 97
[2024-10-08] MEDS: DEXAMETHASONE SOD PHOS 10 MG/ML VIAL PO (19:55)
[2024-10-08] MEDS: FAMOTIDINE 20 MG TABLET PO (19:55)
[2024-10-08] MEDS: CETIRIZINE HCL 10 MG TABLET PO (19:55)
--- NOTE | 2024-10-08 20:23 | ED_ITS ---
HPI - URI/Sore Throat General Chief Complaint: Upper Respiratory Infection Stated Complaint: Upper Respiratory Infection RASH Time Seen by Provider: 10/08/24 19:29 Source: patient Limitations: no limitations History of Present Illness HPI Narrative: 39-year-old male presents with chief complaint of cough and cold-like symptoms. He states he then also developed a rash. He was recently treated for contact dermatitis and finished a course of steroids. He states the rash developed on his knees and upper extremities yesterday. Denies any known contact with poison peter again. He states he also has an upper respiratory infection with cough congestion. He does smoke marijuana daily. He has scant respiratory wheezes noted initially. He is otherwise healthy. Vital signs blood pressure 140s over 70s. Related Data Previous Rx's �Medication �Instructions �Recorded triamcinolone acetonide 0.1 % 1 applic topical BID PRN itching 09/23/24 topical cream #30 grams albuterol sulfate 90 mcg/actuation 2 inh inhalation Q8 H PRN shortness 10/08/24 aerosol inhaler of breath or wheezing #8.5 g rozina azithromycin 250 mg tablet See Rx Instructions PO .COM PLEX #6 10/08/24 (Zithromax Z-Milton) tabs Allergies Allergy/AdvReac Type Severity Reaction Status Date / Time No Known Drug Allergies Allergy Verified 10/08/24 19:24 Review of Systems ROS Status of ROS 10 or more systems reviewed and unremark able except as noted in history and below PFSH PFSH Social History Little interest or pleasure in doing things: not at all Feeling down, depressed, or hopeless: not at all Exam Narrative Exam Narrative: All Systems are negative except as noted/marked.All systems reviewed and otherwise negative Nurses note and vital signs reviewed and patient is not hypoxic. General: The patient appears well and in no apparent distress. Patient is resting comfortably on cart. Skin: Warm, dry, no pallor noted. Hive-like rash noted to the upper extremity back and lower extremity. mucous membrane spared Head: Normocephalic, atraumatic Eye: Normal conjunctiva, no drainage, EOMI. PERRL Ears, Nose, Mouth, and Throat: oral mucosa is moist. Nares patent. Mouth without vesicles. Ear canals patent. Tm's without Erythema Cardiovascular: Regular Rate and Rhythm Respiratory: Patient is in no distress, scattered exp wheezing, no acute distress, no accessory muscle usage Back: non-tender, no CVA tenderness bilaterally to percussion. GI: Normal bowel sounds, no tenderness to palpation, no masses appreciated. No rebound, guarding, or rigidity noted. Musculoskeletal: The patient has no evidence of calf tenderness, no pitting edema, symmetrical pulses noted bilaterally Neurological: A&O x4, normal speech Psychiatric: Cooperative Constitutional Vital Signs, click to edit/add: Last Vital Signs Temp 97.7 F 10/08/24 19:21 Pulse 79 10/08/24 19:45 Resp 16 10/08/24 19:45 BP 152/101 H 10/08/24 19:21 Pulse Ox 97 10/08/24 19:45 O2 Del Method Room Air 10/08/24 19:45 Course Vital Signs Vital signs: Vital Signs Temperature 97.7 F 10/08/24 19:21 Pulse Rate 82 10/08/24 19:21 Respiratory Rate 16 10/08/24 19:21 Blood Pressure 152/101 H 10/08/24 19:21 Pulse Oximetry 97 10/08/24 19:21 Oxygen Delivery Method Room Air 10/08/24 19:21 Temperature 97.7 F 10/08/24 19:21 Pulse Rate 79 10/08/24 19:45 Respiratory Rate 16 10/08/24 19:45 Blood Pressure 152/101 H 10/08/24 19:21 Pulse Oximetry 97 10/08/24 19:45 Oxygen Delivery Method Room Air 10/08/24 19:45 MDM - URI/Sore Throat MDM Narrative Medical decision making narrative: 39-year-old male presents with chief complaint of cough and cold-like symptoms. He states he then also developed a rash. He was recently treated for contact dermatitis and finished a course of steroids. He states the rash developed on his knees and upper extremities yesterday. Denies any known contact with poison peter again. He states he also has an upper respiratory infection with cough congestion. He does smoke marijuana daily. He has scant respiratory wheezes noted initially. He is otherwise healthy. Vital signs blood pressure 140s over 70s. Patient presented with chief complaint of rash cough and cough cold-like symptoms. Chest x-ray was negative by radiology patient did have rapid strep obtained as well which is negative. Patient appears to have a hive-like rash medicated with Decadron Pepcid and Zyrtec symptoms did improve. Patient denies any new medications or soaps. Really rash may be due to a viral exanthem. He is otherwise healthy. He will follow-up primary care physician. Differential Diagnosis Differential diagnosis: Likely upper respiratory infection and other Medical Records Attestation: I reviewed the patient's medical records. Lab Data Attestation: I reviewed the patient's lab results. Labs: Lab Results 10/08/24 Range/Units 19:50 Streptococcus Screen Negative Imaging Data Chest x-ray: Radiologist's impression: ITS Impressions Chest X-Ray 10/08/24 19:33 IMPRESSION: No acute process. Impression dictated by: Naveen Wild M.D. 10/08/2024 8:06 PM Dictation Location[facility] Electronically authenticated by: [id number] Y Date: 10/08/2024 20:06 Discharge Plan Discharge Chief Complaint: Upper Respiratory Infection Clinical Impression: Upper respiratory infection Patient Disposition: Home, Self-Care Time of Disposition Decision: 20:50 Condition: Good Prescriptions / Home Meds: New azithromycin [Zithromax Z-Milton] 250 mg tablet See Rx Instructions .ROUTE .COMPLEX Qty: 6 0RF Rx Instructions: For 250 mg dose pack: take 500 mg today (day 1), then 250 mg for 4 days (days 2-5) albuterol sulfate 90 mcg/actuation HFA aerosol inhaler 2 inh inhalation Q8H PRN (Reason: shortness of breath or wheezing) Qty: 8.5 0RF No Action triamcinolone acetonide 0.1 % cream 1 applic topical BID PRN (Reason: itching) Qty: 30 0RF Rx Instructions: do not apply to face Print Language: Syriac Instructions: Upper Respiratory Infection (ED) Referrals: Physician,Non-Staff, MD [Primary Care Provider] - 1 week Discharge Date/Time: 10/08/24 20:39
== END 2024-10-08 20:39 | disposition home or self-care (01) ==
PROVIDERS: Physician Assistant; Emergency Provider Internal Medicine
DX: J06.9 Acute upper respiratory infection, unspecified (principal); R21 Rash and other nonspecific skin eruption
CPT/HCPCS: 71046; 87070; 87880; 94640; 99285; J1100

== ENCOUNTER 2024-10-21 15:39 | Emergency (ER) | payer SELFPAY ==
--- OUTSIDE RECORDS SUMMARY | 2023-03-03 12:06 | XMS_ITS | Continuity of Care Document ---
Author Organization [facility] [place] Address [address] [place] [address] Phone Care Team Providers Care Yarn Mercerizer Operator Helper Name Role Phone Durga FIGUEROA, Marvin Unavailable [...] VISIT, EST [employer] [facility] [place] Dis Nov Oral Hygiene Instruction Prophylaxis Adult Oral Hygiene Instruction Intraoral-complete Series (bw) Periodic Oral Eval Estab Patient 2021 OFFICE/OUTPATIENT VISIT, EST OFFICE/OUTPATIENT VISIT, EST GLYCOSYLATED HEMOGLOBIN TEST OFFICE/OUTPATIENT VISIT, EST ROUTINE VENIPUNCTURE OFFICE/OUTPATIENT VISIT, EST [employer] Films Intraoral-periapical 1st Film 8 [id number]-[id number] Additional May Periodic Oral Eval Estab Patient [...] Diagnoses Date Provider Providers Copied on Encounter [facility] [place], [address] [place] [address], [id number] , [place] tel:[phone] [facility] [place] No Information 3 Durga Wong. [address] [place] [address], [id number], [place]. tel:[phone] OFFICE/OUTPA TIENT VISIT, [facility], [address] [place] [address], [id number] , [place] tel:[phone] [facility] c/o sti (chief complaint) Body mass index [BMI]30.0-30.9, adultRash 2 Durga Wong. [address] [place] [address], [id number], [place]. tel:[phone] OFFICE/OUTPA TIENT VISIT, EST [facility] [place], [address] [place] [address], [id number] , [place] tel:[phone] [facility] c/o STI (chief complaint) RashContact with and (suspected) exposure to infections with a predominantly sexual mode of transmission Feb- 2 Durga Wong. [address] [place], [place], [id number], [place]. tel:[phone] [facility] [place], [address] [place] [address], [id number] , [place] tel:[phone] [facility] Adult Prophy (chief complaint) Encounter for screening for dental disorders Sep-0 2 [facility] Sandi. . tel:[phone] [facility] [place], [address] [place] [address], [id number] , [place] tel:[phone] [facility] Clinic Encounter for screening for dental disorders Nov-0 2 [facility] Sandi. . tel:[phone] [facility] [place], [address] [place] [address], [id number] , [place] tel:[phone] [facility] PE (chief complaint) Encounter for screening for dental disorders Sep-0 2 [facility] Sandi. . tel:[phone] OFFICE/OUTPA TIENT VISIT, [facility], [address] [place] [address], [id number] , [place] tel:[phone] [facility] Review Labs (chief complaint)h yperlipidem ia (chief complaint) Body mass index [BMI] 28.0-28.9, adultHyperlipid emia, unspecified hyperlipidemia type July- 2 Durga Wong. [address] [place] [address], [id number], [place]. tel:[phone] OFFICE/OUTPA TIENT VISIT, [facility], [address] [place] [address], [id number] , [place] tel:[phone] [facility] Follow-Up (chief complaint)h yperlipidem ia (chief complaint)d epression (chief complaint) Hyperlipidemia, unspecified hyperlipidemia typePTSD (post-traumatic stress disorder)Other bipolar disorderBody mass index [BMI] 28.0-28.9, adult Apr-2 2 Durga Wong. [address], [place], [id number], [place]. tel:[phone] OFFICE/OUTPA TIENT VISIT, [facility], [address] [place] [address], [id number] , [place] tel:[phone] [facility] lab review (chief complaint)l ab work (chief complaint)h yperlipidem ia (chief complaint) Body mass index [BMI]30.0-30.9, adultHyperlipid emia, unspecified hyperlipidemia typeContact with and (suspected) exposure to infections with a predominantly sexual mode of transmission 2 Durga Wong. [address], [place], [id number], [place]. tel:[phone] OFFICE/OUTPA TIENT VISIT, [facility], [address] [place] [address], [id number] , [place] tel:[phone] [facility] STI screening (chief complaint) Contact with and (suspected) exposure to infections with a predominantly sexual mode of transmissionBod y mass index [BMI] 29.0-29.9, adultHyperlipid emia, unspecified hyperlipidemia type 2 Durga Wong. [address] [place], [place], [id number], [place]. tel:[phone] [address] [place] [address], [address] [place] [address], [id number] , [place] tel:[phone] [facility] prophy adult (chief complaint)p rophy adult (chief complaint) Encounter for screening for dental disorders 0 8-201 8 Kokinnadiyan castillon DMD Solochana . [address] [place] [address], [id number], [place]. tel:[phone] OFFICE/OUTPA TIENT VISIT, [facility], [address] [place] [address], [id number] , [place] tel:[phone] [facility] [place] Dotty: (chief complaint) Encounter for STD screeningEncoun ter for screening for human immunodeficienc y virus [HIV]Encounter for screening for other metabolic disorders 8 Dotty Mccoy. [address] [place], [address], [place]. tel:[phone] [facility] [place], [address], [place], [id number] , [place] tel:[phone] [facility] extraction (chief complaint) Encounter for screening for dental disorder 6 [facility] June. [address], [place], [id number], [place]. tel:[phone] [facility] [place], [address], [place], [id number] , [place] tel:[phone] [facility] prophy (chief complaint) Encounter for screening for dental disorder 6 [facility] June. [address] [place], [place], [id number], [place]. tel:[phone] [facility] [place], [address] [place] [address], [id number] , [place] tel:[phone] [facility] [place] screening (chief complaint) Encounter for screening for HIVPenile rashEncounter for screening for other viral diseases 6 Cheryl Jensen. [address] [place], [place], [id number], [place]. tel:[phone] [address] [place] [address], [address] [place] [address], [id number] , [place] tel:[phone] Dental Clinic Dental examination 4 [facility] June. [address] [place], [place], [id number], [place]. tel:[phone] OFFICE/OUTPA TIENT VISIT, EST [facility] [place], [address], [place], [id number] , [place] tel:[phone] [facility] [place] STI male (chief complaint) Contact with or exposure to venereal diseases 4 Cheryl Jensen. [address] [place], [place], [id number], [place]. tel:[phone] [facility] [place], [address], [place], [id number] , [place] tel: [phone] Dental Clinic Dental examination 4 Marlin DMD June. [address] [place], [place], [id number], [place]. tel:[phone] [facility] [place], [address] [place] [address], [id number] , [place] tel: [phone] Dental Clinic Dental examination 4 Marlin DMD June. [address] [place], [place], [id number], [place]. tel:[phone] PREV VISIT, EST, AGE 18-39 [facility] [place], [address] [place] [address], [id number] , [place] tel: [phone] [facility] [place] STI male (chief complaint) Screening examination for venereal diseaseDermatop hytosis of groin and perianal area 0-201 3 Cheryl Jensen. [address] [place], [place], [id number], [place]. tel:[phone] OFFICE/OUTPA TIENT VISIT, EST [facility] [place], [address] [place] [address], [id number] , [place] tel: [phone] [facility] [place] No Information 9200 9 Cheryl Jensen. [address] [place] [address], [id number], [place]. tel:[phone] Family History Family Member Type Diagnosis Age [...] Of Treatment Date Type Action Status Goal Tdap. Due on due Goal PRAPARE ASSESSMENT. Due on due Goal Influenza vaccine. Due on due Goal Hep A. Due on du e Goal Tdap Vaccine. Due on 2022 due Goal Lipid panel. Due on due Goal Hepatitis C scre ening. Due on due Goal Unhealthy drug u se screening. Due on due Goal Depression scree roge. Due on due Goal Hep A. Due on du e Goal RLP. Due on due Goal RLP. Due on due Goal Depression scree roge. Due on due Goal Tdap. Due on due Goal Lipid panel. Due on due Goal PRAPARE ASSESSMENT. Due on due Goal Influenza vaccine. Due on due Goal Dietary manageme nt education, guidance, and counseling completed Goal Lipid panel. Due on due Goal Depression scree roge. Due on due Goal PRAPARE ASSESSMENT. Due on due Goal Influenza vaccine. Due on due Goal Tdap. Due on due Goal RLP. Due on due Goal Lipid panel. Due on 027 due Goal PRAPARE ASSESSMENT. Due on S due Goal Influenza vaccine. Due on Se due Goal RLP. Due on due Goal Depression scree roge. Due on due Goal Tdap. Due on due Goal RLP. Due on due Goal Depression scree roge. Due on due Goal Influenza vaccine. Due on due Goal Tdap. Due on due Goal PRAPARE ASSESSMENT. Due on due Goal RLP. Due on due Goal Depression scree roge. Due on due Goal Influenza vaccine. Due on Ma due Goal Tdap. Due on due Goal Dietary manageme nt education, guidance, and counseling completed Goal Influenza vaccine. Due on Ap due Goal Depression scree roge. Due on due Goal Tdap. Due on due Goal RLP. Due on due Goal Lifestyle education regardin g diet completed Goal Influenza vaccine. Due on due Goal Tdap. Due on due Goal RLP. Due on due Goal Depression scree roge. Due on due Goal Dietary manageme nt education, guidance, and counseling completed Goal Tdap. Due on due Goal RLP. Due on due Goal Influenza vaccine. Due on due Goal Depression scree roge. Due on due Goal Lifestyle education regardin g diet completed Goal RLP. Due on due Goal Depression scree roge. Due on due Goal H&P. Due on due Goal Tdap. Due on due Goal Influenza vaccine. Due on due Goal Influenza vaccine. Due on due Goal Tdap. Due on due Goal Depression scree roge. Due on due Goal RLP. Due on due Goal H&P. Due on due Goal Tdap. Due on due Goal H&P. Due on due Goal Td vaccine. Due on 16 due Goal Tdap. Due on due Goal H&P. Due on due Goal Td vaccine. Due on 16 due Goal H&P. Due on due Goal Tdap. Due on due Goal Td vaccine. Due on 16 due Goal H&P. Due on due Future Order: Lab Order HSV 1 an d 2-Specific Ab, IgG ([id number]), Ordered on: Ordered Future Order: Lab Order HSV Cult ure and Typing ([id number]), Ordered on: Ordered History Of Present Illness Encounter Date Complaint History Of Prese nt Illness c/o sti Pt here for STI. Edwina, RNHSV positive partner, rash to groin area for 1-2 weeks. Partner with outbreak 1 month ago no intercourse while rash present. Concern for HSV, cephalexin has not been started. Nhan [facility] c/o STI Patient states h e [...] 2 partner not on suppression medication. Nhan [facility] Adult Prophy Adult Prophy PE hyperlipidemia [...] information: patient tested positive for HSV per program strategist, patient requesting to be tested. Nhan BILLS. [...] unspecified hyperlipidemia type 1. Follow up with [facility] psychiatry provider. Contact [facility] today to schedule 2. Avoid alcohol and illicit drugs3. Exercise regularly4. practice good sleep hygiene.5. Use [facility] Hotline for any suicidal or homicidal ideations Related to PTSD (post-traumatic stress disorder) 1. Follow up with [facility] psychiatry provider. Contact [facility] today to schedule 2. Avoid alcohol and illicit drugs3. Exercise regularly4. practice good sleep hygiene.5. Use [facility] Hotline for any suicidal or homicidal ideations [...]
--- OUTSIDE RECORDS SUMMARY | 2023-10-04 10:45 | XMS_ITS ---
Author Organization [facility] es Address [address] [place] [address] Care Team Providers Care Executive Director Contract Shop Name Role Phone Dr. Jono Mars Primary Care Provider [phone] Storm Easton [phone] REASON FOR VISIT FILLING Encounters Encounter Location Date Provider Diagnosis [place] [address] [place] [address] 10/04/2023 Storm Vang Plan Of Treatment No Information Progress Notes * KING AVENDAÑO TDOB:1985 (39 yo M)Acc No.[id number]:10/04/2023 Patient: KING LEDESMA Provider: Roldan Vang DDS :1985 A ge:38 Y S ex:Male Date:10/04/2023 Address:[address] [place] [address] [address] [id number] Pcp:Dr. Jono Mars Subjective: * Chief Complaints: * 1 . FILLING. * Medical History: Objective: * Vitals: Assessment: Plan: * Treatment: * Images: * Electronic signature of Yaquelin Vang DDS on 10/21/2024 at 03:51 PM EDT Sign off status: Pending * Provider: Roldan Vang DDS Date: 10/04/2023 Generated for Alice nazario/Faabdirashidg/eTransmitting on: 10/21/2024 03:51 PM EDT
--- OUTSIDE RECORDS SUMMARY | 2023-12-08 04:30 | XMS_ITS ---
Author Organization [facility] es Address [address] [place] [address] Care Team Providers Care Ethnographer Name Role Phone Dr. Jono Mars Primary Care Provider [phone] Alison Marcus [phone] REASON FOR VISIT PROPHY Encounters Encounter Location Date Provider Diagnosis [facility] [address] [place] [address] 12/08/2023 Alison Lewis Plan Of Treatment No Information Progress Notes * KING AVENDAÑO TDOB:1985 (39 yo M)Acc No.[id number]:12/08/2023 Patient: KING LEDESMA Provider: Janet Hahn :1985 A ge:38 Y S ex:Male Date:12/08/2023 Address:[address] [facility] [address] [id number] Pcp:Dr. Jono Mars Subjective: * Chief Complaints: * 1 . PROPHY. * Medical History: Objective: * Vitals: Assessment: Plan: * Treatment: * Images: * Electronic signature of Radha Lewis on 10/21/2024 at 03:51 PM EDT Sign off status: Pending * Provider: Janet Hahn Date: 12/08/2023 Generated for Bii ng/Faxing/eTransmitting on: 0 10/21/2024 03:51 PM EDT
--- OUTSIDE RECORDS SUMMARY | 2024-01-16 05:00 | XMS_ITS ---
Author Organization [facility] es Address [address] [place] [address] Care Team Providers Care Wood Repatcher Name Role Phone Dr. Jono Mars Primary Care Provider Thalia Alonzo [phone] REASON FOR VISIT FILLING Encounters Encounter Location Date Provider Diagnosis [facility] [address] [place] [address] 01/16/2024 Thalia Scott Plan Of Treatment No Information Progress Notes * JOSELITO AVENDAÑOIC TDOB:1985 (39 yo M)Acc No.[id number]:01/16/2024 Patient: KING LEDESMA Provider: Dallas SCOTT DDS :1985 A ge:38 Y S ex:Male Date:01/16/2024 Address:[address] [place] [address] W, [address] [phone] Pcp:Dr. Jono Mars Subjective: * Chief Complaints: * 1 . FILLING. * Medical History: Objective: * Vitals: Assessment: Plan: * Treatment: * Images: * Electronic signature of Adela Scott DDS on 10/21/2024 at 03:51 PM EDT Sign off status: Pending * Provider: Dallas SCOTT DDS Date: 1 Generated for Printi ng/Faxing/eTransmitting on: 0 10/21/2024 03:51 PM EDT
[2024-10-21 15:46] VITALS: BP 142/97; PULSE 62; TEMP 36.8; O2SAT 96; BMI 28.9
--- OUTSIDE RECORDS SUMMARY | 2024-10-21 15:51 | XMS_ITS | Clinical Summary ---
Author Organization [facility] Address [address] [place] [address] Care Team Providers Care Post Exchange Manager Name Role Phone Unavailable Primary Care Provider [...] Type Department Care Team Description 08/30/2024 Telephone [facility] [address] [facility] [email or web address] [address] [facility] [address] [place] [address] Ilana Maguire LPN Results 08/24/2024 Results Follow-Up [facility] [address] [facility] [[email or web address] [address] [facility] [address] [place] [address] Rula Hooper MD 08/23/2024 1:05 PM EDT Office Visit [facility] [address] [facility] [[email or web address] [address] [place] [address] Rula Hooper MD Encounter for removal of sutures 08/23/2024 Bamboo flowsheet [facility] [address] [place] [address] Rula Hooper MD 08/23/2024 Travel 08/16/2024 11:10 AM EDT [facility] [address] [place] [address] Araceli Villatoro APRN-CNP Rash and other nonspecific skin eruption 08/16/2024 Bamboo flowsheet [facility] [address] [place] [address] Araceli Villatoro APRN-SANJU 08/16/2024 Travel from Last 3 Months Social [...] Description 08/20/2025 8:30 AM EDT Office Visit [facility] [address] [place] [address] Araceli Villatoro APRN-CNP [address] [place] [address] Procedures Procedure Name Priority Date/Time Associated Diagnosis [...] Description Microscopic examination performed. [facility] CPT 02202*1 68467*1 [facility] Skin Topography unknown / Unknown 08/16/2024 11:28 AM EDT Comment:Differential Diagnos is: psoriasis vs. Tinea corporis Check Margins: No us Araceli Villatoro BARKER PEELER-INTERNET MEDIA PLANNER LAB PATHOLOGY ORDERABL ES Final Result [employer] from Last 3 Months
[2024-10-21 16:19] LABS: Hematocrit 43.9 % (42.0-54.0); Hemoglobin 16.3 g/dL (14.0-18.0); Immature Granulocytes Abs Auto 0.06 10^3/uL (0.00-0.03); Immature Granulocytes Pct Auto 0.5 % (0.0-0.5); Lymphocytes Absolute Auto 3.1 10^3/uL (1.2-3.8); Mean Corpuscular HGB Conc 37.1 g/dL (29.9-35.2); Mean Corpuscular Hemoglobin 30.1 pg (25.9-34.0); Mean Corpuscular Volume 81.0 fL (80.0-94.0); Platelet Count 257 10^3/uL (150-450); Red Blood Count 5.42 10^6/uL (4.70-6.10); White Blood Count 11.3 10^3/uL (4.0-11.0)
[2024-10-21 16:34] LABS: Alanine Aminotransferase 33 U/L (16-63); Albumin Globulin Ratio 1.3; Albumin Level 4.3 g/dL (3.4-5.0); Alkaline Phosphatase 83 U/L (46-116); Anion Gap 11.4; Aspartate Amino Transferase 8 U/L (15-37); Blood Urea Nitrogen 13.0 mg/dL (7.0-18.0); Calcium 9.5 mg/dL (8.5-10.1); Carbon Dioxide 27.4 mmol/L (21.0-32.0); Chloride 102 mmol/L (98-107); Estimated GFR (African America >60 (>=60 mL/min/1.73m^2); Estimated GFR (Non-African Ame >60 (>=60 mL/min/1.73m^2); Globulin 3.4 g/dL; Glucose 96 mg/dL (74-106); Magnesium 1.8 mg/dL (1.8-2.4); Potassium 3.8 mmol/L (3.5-5.1); Sodium 137 mmol/L (136-145); Total Protein 7.7 g/dL (6.4-8.2)
--- NOTE | 2024-10-21 16:56 | ED.DIZZY1 ---
HPI - Dizziness General Chief Complaint: Dizziness Stated Complaint: DIZZY/VOMITING Time Seen by Provider: 10/21/24 15:49 Source: patient Mode of arrival: walk-in Limitations: no limitations History of Present Illness MD elicited complaint: Reports vertigo Onset (ago): hour(s) Timing: Reports sudden onset Severity: moderate Description: Reports room spinning Context: Reports change in body position History of similar symptoms: Yes Exacerbating factors: Reports movement/ambulation, change in body position and position/lying down Relieving factors: Reports remaining still Associated symptoms: Reports nausea and vomiting Associated neuro symptoms: Denies diplopia, vision changes, difficulty speaking, difficulty swallowing, facial numbness, facial weakness, limb numbness, limb weakness, gait ataxia, limb ataxia, confusion or other Related Data Previous Rx's ?Medication ?Instructions ?Recorded meclizine 50 mg tablet (Antivert) 50 mg PO Q8H PRN dizziness #10 tabs 10/21/24 ondansetron 4 mg disintegrating 4 mg PO Q6H PRN nausea and 10/21/24 tablet vomiting #10 tabs Allergies Allergy/AdvReac Type Severity Reaction Status Date / Time No Known Drug Allergies Allergy Verified 10/21/24 15:46 PFSH PFSH Social History Little interest or pleasure in doing things: not at all Feeling down, depressed, or hopeless: not at all Exam Constitutional Vital Signs, click to edit/add: Last Vital Signs Temp 98.2 F 10/21/24 15:46 Pulse 62 10/21/24 15:46 Resp 16 10/21/24 15:46 BP 142/97 H 10/21/24 15:46 Pulse Ox 96 10/21/24 15:46 O2 Del Method Room Air 10/21/24 15:46 Course Vital Signs Vital signs: Vital Signs Temperature 98.2 F 10/21/24 15:46 Pulse Rate 62 10/21/24 15:46 Respiratory Rate 16 10/21/24 15:46 Blood Pressure 142/97 H 10/21/24 15:46 Pulse Oximetry 96 10/21/24 15:46 Oxygen Delivery Method Room Air 10/21/24 15:46 Temperature 98.2 F 10/21/24 15:46 Pulse Rate 62 10/21/24 15:46 Respiratory Rate 16 10/21/24 15:46 Blood Pressure 142/97 H 10/21/24 15:46 Pulse Oximetry 96 10/21/24 15:46 Oxygen Delivery Method Room Air 10/21/24 15:46 MDM - Dizziness MDM Narrative Medical decision making narrative: Presents to the ED with a complaint of dizziness. He states he got up this morning and when he got up to move about he had significant room spinning dizziness. It did eventually calm down but then when he went to lie back down he got the dizziness again. He did have a emesis episode which did help with symptoms feel little better. He has denied any recent head injury. He did have vertigo at 1 time when he had a head injury multiple years ago. He has not had any recent head injury or injury. He is afebrile. No runny nose or sore throat no lightheadedness at this time. No chest pain or shortness of breath no abdominal pain. Patient is alert and oriented in no acute distress currently. HEENT exam is unremarkable pupils equal reactive with good extraocular movements. No nuchal rigidity or lymphadenopathy. Heart exam regular echo. Cranial nerves grossly intact. No numbness or tingling in his extremities good pulses distally in all 4 extremities. Normal sensation. He is ambulatory here to the ED. He does seem to have dizziness That is onset when he stands up or chages position. it does subside after a few minutes in that position. Patient was given meclizine and Zofran. His symptoms did resolve after this medication. He was able to tolerate p.o. Patient was amatory around the department. He remained alert and oriented with cranial nerves grossly intact no neurological deficit prior to discharge and throughout his visit here. Patient does not have any grossly concerning lab values. Vital signs have been stable. He will his PCP. Patient was encouraged to return with any worse or concerning symptoms. He understands all discharge instructions and will follow-up as discussed. Discussed with ED attending, Dr. Bach Differential Diagnosis Differential diagnosis: Likely adverse reaction to drug and benign paroxysmal positional vertigo Medical Records Attestation: I reviewed the patient's medical records. Lab Data Attestation: I reviewed the patient's lab results. Labs: Lab Results 10/21/24 10/21/24 Range/Units 15:57 17:00 WBC 11.3 H (4.0-11.0) 10^3/uL RBC 5.42 (4.70-6.10) 10^6/uL Hgb 16.3 (14.0-18.0) g/dL Hct 43.9 (42.0-54.0) % MCV 81.0 (80.0-94.0) fL MCH 30.1 (25.9-34.0) pg MCHC 37.1 H (29.9-35.2) g/dL RDW 11.9 (11.0-15.0) % Plt Count 257 (150-450) 10^3/uL MPV 9.5 (9.5-13.5) fL Neut % (Auto) 67.1 (43.0-75.0) % Lymph % (Auto) 27.7 (20.5-60.0) % [place] % (Auto) 4.0 (1.7-12.0) % Eos % (Auto) 0.4 L (0.9-7.0) % Baso % (Auto) 0.3 (0.2-2.0) % Neut # (Auto) 7.6 H (1.4-6.5) 10^3/uL Lymph # (Auto) 3.1 (1.2-3.8) 10^3/uL [place] # (Auto) 0.5 (0.3-0.8) 10^3/uL Eos # (Auto) 0.1 (0.0-0.7) 10^3/uL Baso # (Auto) 0.0 (0.0-0.1) 10^3/uL Abs Immat Gran (auto) 0.06 H (0.00-0.03) 10^3/uL Imm/Tot Granulo (auto) 0.5 (0.0-0.5) % Sodium 137 (136-145) mmol/L Potassium 3.8 (3.5-5.1) mmol/L Chloride 102 (98-107) mmol/L Carbon Dioxide 27.4 (21.0-32.0) mmol/L Anion Gap 11.4 BUN 13.0 (7.0-18.0) mg/dL Creatinine 0.82 (0.70-1.30) mg/dL Est GFR ( Amer) >60 (>=60 mL/min/1.73m^2) Est GFR (Non-Af Amer) >60 (>=60 mL/min/1.73m^2) BUN/Creatinine Ratio 15.9 Glucose 96 (74-106) mg/dL Calcium 9.5 (8.5-10.1) mg/dL Magnesium 1.8 (1.8-2.4) mg/dL Total Bilirubin 0.6 (0.2-1.0) mg/dL AST 8 L (15-37) U/L ALT 33 (16-63) U/L Alkaline Phosphatase 83 (46-116) U/L Total Protein 7.7 (6.4-8.2) g/dL Albumin 4.3 (3.4-5.0) g/dL Globulin 3.4 g/dL Albumin/Globulin Ratio 1.3 Urine Color Lt. yellow (YELLOW) Urine Clarity Clear (CLEAR) Urine pH 6.0 (5.0-9.0) Ur Specific [place] 1.010 (1.005-1.025) Urine Protein Negative (NEG/TRACE) mg/dL Urine Glucose (UA) Negative (NEGATIVE) mg/dL Urine Ketones Negative (NEGATIVE) mg/dL Urine Occult Blood Negative (NEGATIVE) Urine Nitrite Negative (NEGATIVE) Urine Bilirubin Negative (NEGATIVE) Urine Urobilinogen 0.2 (0.2-1.0) EU/dL Ur Leukocyte Esterase Negative (NEGATIVE) Smoking Cessation Time spent discussing smoking cessation with patient: 3 to 10 minutes Patient Acknowledges Need for Cessation: No Discharge Plan Discharge Chief Complaint: Dizziness Clinical Impression: Vertigo Patient Disposition: Home, Self-Care Time of Disposition Decision: 17:58 Condition: Good Mode of Transportation: Private Vehicle Prescriptions / Home Meds: New meclizine [Antivert] 50 mg tablet 50 mg PO Q8H PRN (Reason: dizziness) Qty: 10 0RF ondansetron 4 mg tablet,disintegrating 4 mg PO Q6H PRN (Reason: nausea and vomiting) Qty: 10 0RF Print Language: Macedonian Instructions: Vertigo (ED) Referrals: Prakash Kamara MD [Physician, Family Practice] - 1 week Referral Note: SKYLAR this week Discharge Date/Time: 10/21/24 18:19
[2024-10-21] MEDS: MECLIZINE HCL 12.5 MG TABLET 25 MG PO (16:58)
[2024-10-21 17:19] LABS: Glucose Urine UA NEGATIVE (NEGATIVE)
== END 2024-10-21 18:19 | disposition home or self-care (01) ==
PROVIDERS: Physician Assistant; Emergency Provider Student in an Organized Health Care Education/Training Program
DX: R42 Dizziness and giddiness (principal)
CPT/HCPCS: 36415; 80053; 81003; 83735; 85025; 96374; 99285; J2405